=== PATIENT | male | born 1945 | race Caucasian/White ===

== ENCOUNTER 2016-09-04 15:29 | Inpatient (IN) ==
--- NOTE | 2016-09-04 16:33 | Emergency Department Note ---
Disposition Clinical Impression: Gait instability, Light headedness, Elevated troponin, Elevated INR, History of atrial fibrillation, History of CVA (cerebrovascular accident), Ischemic cardiomyopathy Disposition: Admitted As Inpatient Condition: Good Time of Disposition: 19:01 General Adult HPI - General Chief complaint: ED Weakness Stated complaint: weakness Source: EMS Mode of arrival: EMS Limitations: no limitations Nursing Notes Reviewed: Yes Vital Signs Reviewed: Yes - History of Present Illness HPI Narrative: Five-minute episode of difficulty ambulating. And lightheadedness. Denies shortness of breath or chest pain. Symptoms began after he finished a pulmonary function test. The symptoms subsided after he sat down. Pain Scale: 0 - Related Data Allergies Allergy/AdvReac Type Severity Reaction Status Date / Time No Known Allergies Allergy Verified 09/04/16 15:35 Review of Systems: Patient denies any fevers or chills. He reports lightheadedness that lasted 5 minutes prior to arrival. Denies any headaches. Denies any visual changes. Denies any shortness of breath or chest pain. Denies any nausea vomiting or diarrhea. Denies any abdominal pain. He denies any urinary symptoms. She denies any trouble urinating or hematuria. He denies any episodes of hematochezia or melena. All systems ED: reviewed and negative except as stated. Past Medical History - Past Medical History Attestation: Yes The following information was validated with the patient. Medical history: Reports: atrial fibrillation, CHF, coronary artery disease, CVA , hyperlipidemia, hypertension, myocardial infarction, valvular heart disease - Social History Smoking Status: Former smoker Smokeless Tobacco Status: No Alcohol use: Reports: none Drug use: Reports: none Physical Exam - General Limitations: no limitations General appearance: alert, in no apparent distress - Head Head exam: atraumatic, normocephalic, normal inspection - Eye Eye exam: Present: normal appearance, PERRL, EOMI - ENT ENT exam: normal exam, normal oropharynx, mucous membranes moist - Neck Neck exam: Present: normal inspection, full ROM, trachea midline - Chest Chest inspection: Present: normal inspection, symmetric chest wall rise - Respiratory Respiratory exam: Present: normal lung sounds bilaterally - Cardiovascular Cardiovascular exam: Present: regular rate, normal rhythm, normal heart sounds - Abdominal Exam Abdominal exam: Present: soft, Non-Tender, normal bowel sounds. Absent: tenderness, distention, guarding, rebound, rigidity, organomegaly - Rectal Exam Hand Washer present during exam: Yes Rectal exam: Present: normal inspection, normal rectal tone, heme (+) stool. Absent: black stool, bloody stool, fecal impaction, hemorrhoids, mass, tenderness - Extremities Exam Extremities exam: Present: normal inspection, full ROM, normal capillary refill. Absent: tenderness, pedal edema - Back Exam Back exam: Present: normal inspection, full ROM. Absent: tenderness, CVA tenderness (R), CVA tenderness (L) - Neurological Exam Neurological exam: Present: alert, oriented X3 - Psychiatric Psychiatric exam: Present: normal affect, normal mood - Skin Skin exam: Present: warm, dry, intact, normal color. Absent: rash, cyanosis Course Course Narrative: Well-appearing male patient presenting to the emergency department by EMS. He had a PFT test done earlier today at the [facility]. He states after he left he felt very weak and lightheaded. He denies any episodes of vertigo. He denies any chest pain or shortness of breath associated with this. He states he had to hold the wall to walk. This was concerning to him because his previous strokes he has had he has also had trouble ambulating. He denies any other symptoms such as numbness tingling or weakness in any specific extremity. He denies any headaches or visual disturbances. He states that this started around 235 this afternoon and resolved within 5 minutes after he sat down. He has no complaints at this time and states that he is feeling normal. He has a friend at bedside and she states that he is acting appropriate for himself. He is making jokes on exam. He is neurologically intact. I do not appreciate any neurologic deficits. CT scan of patient's head shows several episodes of old infarcts and possible subacute infarcts. Radiology is recommending further evaluation with an MRI. I feel this is reasonable. He was monitored in the emergency department with no evolving symptoms. We will admit patient to the hospital for further evaluation of his transient neurologic symptoms earlier today. After he got here I observed his gait and this was normal. He is agreeable to admission. Of note his INR and PTT were elevated. The friend states that they have been having trouble with his INR but it is been running low. He reports no episodes of GI bleeding however we checked a rectal exam. There is no gross blood on exam. His troponin was slightly increased so we have given him an aspirin while he is here. - Reevaluation(s) Reevaluation #1: Patient reassessed. He is still neurologically intact. I do not appreciate any neuro deficits. We will admit him to the hospital for further neurologic workup. He is agreeable to this. Time: 18:16 - Consultations Consultation #1: Dr. Minaya accepted patient's stable condition. Time: 18:24 Vital Signs Temperature 97.6 F 09/04/16 15:36 Pulse Rate 75 09/04/16 15:36 Respiratory Rate 18 09/04/16 15:36 Blood Pressure 143/96 09/04/16 15:36 O2 Sat by Pulse Oximetry 96 09/04/16 15:36 Temperature 97.4 F L 09/04/16 20:13 Pulse Rate 59 09/04/16 20:13 Respiratory Rate 16 09/04/16 20:13 Blood Pressure 156/66 09/04/16 20:13 O2 Sat by Pulse Oximetry 91 09/04/16 20:13 Oxygen Delivery Oxygen Delivery Room Air Medical Decision Making - Medical Records Medical records reviewed: Yes I reviewed the patient's medical records. - Lab Data Lab results reviewed: Yes I reviewed the patient's lab results. Result diagrams: 09/04/16 17:11 09/04/16 17:11 Lab Results 09/04/16 09/04/16 09/04/16 Range/Units 17:11 17:11 17:11 WBC 8.0 (4.3-11.1) K/mcL RBC 4.74 (4.19-5.50) M/mcL Hgb 15.0 (12.9-16.9) g/dL Hct 45.2 (37.5-50.1) % MCV 95.4 (83.0-100.0) fL MCH 31.6 (28.0-33.3) pg MCHC 33.2 (31.6-35.5) g/dL RDW 14.1 (11.5-14.5) % Plt Count 164 (140-400) K/mcL MPV 10.8 (9.4-12.4) fL Immature Gran % 0.7 (0-4) % Seg Neutrophils % 62.0 % Lymphocytes % 20.0 % Monocytes % 9.0 % Eosinophils % 7.2 % Basophils % 1.1 % Neutrophils # 5.0 (1.6-8.9) K/mcL Lymphocytes # 1.6 (0.6-4.6) K/mcL Monocytes # 0.7 (0.0-1.3) K/mcL Eosinophils # 0.6 (0.0-0.6) K/mcL Basophils # 0.1 (0.0-0.2) K/mcL PT (9.4-12.1) Seconds INR Sodium 138 (136-145) mEq/L Potassium 4.3 (3.5-4.5) mEq/L Chloride 107 (98-109) mEq/L Carbon Dioxide 24 (19-29) mEq/L BUN 22 (8-26) mg/dL Creatinine 1.12 (0.72-1.25) mg/dL Est GFR ( Amer) > 60 (> 60) Est GFR (Non-Af Amer) > 60 (> 60) BUN/Creatinine Ratio 20 (6-26) Glucose 94 (70-99) mg/dL Calculated Osmolality 289 (280-300) Calcium 9.2 (8.6-10.8) mg/dL Troponin I 0.04 H* (0-0.03) ng/mL Stool Occult Blood (Negative) 09/04/16 09/04/16 Range/Units 17:11 18:50 WBC (4.3-11.1) K/mcL RBC (4.19-5.50) M/mcL Hgb (12.9-16.9) g/dL Hct (37.5-50.1) % MCV (83.0-100.0) fL MCH (28.0-33.3) pg MCHC (31.6-35.5) g/dL RDW (11.5-14.5) % Plt Count (140-400) K/mcL MPV (9.4-12.4) fL Immature Gran % (0-4) % Seg Neutrophils % % Lymphocytes % % Monocytes % % Eosinophils % % Basophils % % Neutrophils # (1.6-8.9) K/mcL Lymphocytes # (0.6-4.6) K/mcL Monocytes # (0.0-1.3) K/mcL Eosinophils # (0.0-0.6) K/mcL Basophils # (0.0-0.2) K/mcL PT 50.8 H* (9.4-12.1) Seconds INR 4.5 H* Sodium (136-145) mEq/L Potassium (3.5-4.5) mEq/L Chloride (98-109) mEq/L Carbon Dioxide (19-29) mEq/L BUN (8-26) mg/dL Creatinine (0.72-1.25) mg/dL Est GFR ( Amer) (> 60) Est GFR (Non-Af Amer) (> 60) BUN/Creatinine Ratio (6-26) Glucose (70-99) mg/dL Calculated Osmolality (280-300) Calcium (8.6-10.8) mg/dL Troponin I (0-0.03) ng/mL Stool Occult Blood Negative (Negative) - Radiology Data Radiology results reviewed: Yes I reviewed the patient's radiology results. Chest X-Ray 09/04/16 15:57 IMPRESSION: No acute process. Mild cardiomegaly. D/ / Russ Lilly MD / Russ Lilly MD Interpreting Provider: Russ Lilly MD Head CT 09/04/16 16:22 IMPRESSION: Multifocal areas of selby-white matter junction loss seen within the bifrontal lobes, as well as the right frontoparietal region, right temporal lobe, as well as in the right occipital lobe. Some of these areas are associated with encephalomalacia and volume loss, though to a lesser degree in the right temporal lobe and right occipital lobe. There is also multifocal underlying deep white matter low attenuation suggestive of chronic microvascular ischemic change. Though much of this may be related to chronic ischemic and remote infarcts with encephalomalacia, an area of acute or possibly subacute ischemia is in the differential and is difficult to exclude in the setting of more extensive disease. If clinically concerned, further evaluation with MR may be beneficial. No intracranial hemorrhage is seen. This was discussed with Dr. Tobias in the emergency department 4:59 p.m. on 09/04/2016. D/ / Chai Bob MD / Chai Bob MD Interpreting Provider: Chai Bob MD - EKG Data EKG #1 EKG attestation: Yes I reviewed and interpreted this EKG. EKG results narrative: EKG showed a paced rhythm at [address] or T-wave changes are appreciated. Attestation Statement - Attestation Attestation: I personally interviewed and examined this patient and my medical decision- making was reviewed with the ED Resident Physician, Dr. Jc I agree with the documented findings, disposition and treatment plan as described except to the extent set forth below. Patient is a 71-year-old white male brought to the emergency department by EMS from the [facility] following urinary function testing that was scheduled for him routinely this morning. Patient and friend are at bedside and states that after his testing he was riding on a cart to go back to his parking area. Patient states that while riding on the cart he just "did not feel good" and commented to his friend that he felt like he did when he was having his stroke. When asking the patient to elaborate on this and give us more detail as to what he was feeling at that time he states that he does not know. All he can tell us is that he was feeling overwhelming generalized weakness and difficulty with standing and ambulating. [facility] that he was holding onto a wall to assist with ambulation because he felt off balance although patient here denies any dizziness or room spinning sensation. Patient denies any headaches or visual changes, a friend with him denies that he was having any slurred speech no facial droop, no chest pain pressure or heaviness, no shortness of breath, no diaphoresis, no abdominal pain or back pain, no flank discomfort and no vomiting bowel changes or urinary symptoms. Patient states he went to get off the cart transfer to a wheelchair and had trouble with standing due to his generalized weakness stating that his legs just felt like they might give out from under him. He actually required assistance for transfer from the cart to his wheelchair. Patient states on arrival to the ED here that his symptoms have resolved, he has no physical complaints at this time stating that he is feeling much better and actually ambulated for us in the ED without difficulty independently on arrival. Patient with clear speech, no focal neurologic deficits and stable vital signs. I agree with patient's physical exam findings as documented. For me patient had an NIH score of 0 on arrival. Patient's EKG shows a paced rhythm. Patient remained hemodynamically stable and within unchanged neurologic exam serially over time without his ED course. I was called by the radiologist due to the patient's head CT findings. He states that there is just a significant amount of encephalomalacia and a loss of the selby-white interface presumably from chronic changes but states this is very difficult to assess for any acute infarct. He does not see any hemorrhage or infarct but recommends MRI for further evaluation. Chest x-ray is unremarkable. Labs did show that he has an elevated INR, apparently discussing with him the recently made changes in his Coumadin because his levels were "too low". He also has a positive troponin with normal renal function. Patient denied any chest pain or pressure throughout his [facility] with his weakness and no chest pain on arrival here to the ED. Patient does have a pretty extensive cardiac history including ischemic cardiomyopathy, atrial fibrillation and prior heart cath. Patient is resting comfortably and asymptomatic at bedside. Patient was given aspirin on arrival prior to results of INR due to his elevated troponin. We did go in and perform a rectal exam and this was negative for blood. We will admit patient for concern for possible TIA with transient neurologic symptoms that resolved prior to arrival. Patient has 2 prior CVAs in the past, the most recent being about 10 years ago. He also has an elevated troponin which requires further evaluation with a paced rhythm on EKG. Due to his elevated INR we did not initiate heparin in the ED. Discussed the case with the hospitalist to accept the patient for admission.
[2016-09-04 17:50] LABS: Basophils # 0.1 K/mcL (0.0-0.2); Basophils % 1.1 %; Eosinophils # 0.6 K/mcL (0.0-0.6); Eosinophils % 7.2 %; Hematocrit 45.2 % (37.5-50.1); Immature Granulocytes % 0.7 % (0-4); Lymphocytes # 1.6 K/mcL (0.6-4.6); Mean Corpuscular HGB Conc 33.2 g/dL (31.6-35.5); Mean Corpuscular Hemoglobin 31.6 pg (28.0-33.3); Mean Corpuscular Volume 95.4 fL (83.0-100.0); Mean Platelet Volume 10.8 fL (9.4-12.4); Monocytes # 0.7 K/mcL (0.0-1.3); Platelet Count 164 K/mcL (140-400); Red Blood Count 4.74 M/mcL (4.19-5.50); Red Cell Distribution Width 14.1 % (11.5-14.5)
[2016-09-04 18:02] LABS: BUN/Creatinine Ratio 20 (6-26); Blood Urea Nitrogen 22 mg/dL (8-26); Calcium 9.2 mg/dL (8.6-10.8); Carbon Dioxide 24 mEq/L (19-29); Chloride 107 mEq/L (98-109); Glucose 94 mg/dL (70-99); Osmolality,Calculated 289 (280-300); Potassium 4.3 mEq/L (3.5-4.5); Sodium 138 mEq/L (136-145); eGFR For African Americans > 60 (> 60); eGFR For Non-African Americans > 60 (> 60)
[2016-09-04] MEDS ORDERED: Aspirin 81 MG TAB.CHEW PO ONE (18:23)
[2016-09-04 18:37] LABS: INR 4.5; Prothrombin Time 50.8 Seconds (9.4-12.1)
[2016-09-04] MEDS ORDERED: Ondansetron 4 MG/2 ML VIAL IVP PRN (20:54)
[2016-09-04] MEDS ORDERED: Naloxone 0.4 MG/ML INJ IVP PRN (20:54)
[2016-09-04] MEDS ORDERED: Nitroglycerin 0.4 MG TAB.SUBL SL PRN (20:56)
--- NOTE | 2016-09-04 21:05 | Internal Med History&Physical ---
Date of Encounter: 09/04/16 Time of Encounter: 20:59 Assessment and Plan (1) TIA (transient ischemic attack) Current visit: Yes Status: Acute Reports of gait instability that lasted 5 minutes with complete resolution of symptoms spontaneously CT head noted which is consistent with chronic changes will obtain MRI head 2D echo, carotid doppler neurology consult Aspirin, Statin hold coumadin given supratherapeutic INR patient ambulating well around the room and cleared bedside speech evaluation tele monitoring Qualifiers: Transient cerebral ischemia type: unspecified Qualified Code(s): G45.9 - Transient cerebral ischemic attack, unspecified (2) Supratherapeutic INR Current visit: Yes Status: Acute Will hold Coumadin at this time no need for Vit K or FFP supplementation at this time as patient is clinically asymptomatic without any acute bleed closely monitor INR, if remains persistently elevated or if an acute bleed occurs, consider reversal therapy (3) Atrial fibrillation Current visit: Yes Status: Chronic Rate controlled with BB anticoagulated with Coumadin Qualifiers: Atrial fibrillation type: chronic Qualified Code(s): I48.2 - Chronic atrial fibrillation (4) CHF (congestive heart failure) Current visit: Yes Status: Acute No signs of acute exacerbation continue home medications O2 supplementation as needed Patient may have undiagnosed COPD continue home nebulizer treatment Qualifiers: Congestive heart failure type: unspecified congestive heart failure type Congestive heart failure chronicity: chronic Qualified Code(s): I50.9 - Heart failure, unspecified (5) CAD (coronary artery disease) Current visit: Yes Status: Chronic No acute signs of angina present at this time continue home medications Qualifiers: Coronary Disease-Associated Artery/Lesion type: unspecified vessel or lesion type [place] vs. transplanted heart: unspecified whether [place] or transplanted heart Associated angina: with unspecified angina Qualified Code (s): I25.119 - Atherosclerotic heart disease of [place] coronary artery with unspecified angina pectoris (6) HTN (hypertension) Current visit: Yes Status: Chronic Will resume home medications and closely monitor BP Hydralazine 10mg IVP q6h SBP>150 Qualifiers: Hypertension type: essential hypertension Qualified Code(s): I10 - Essential (primary) hypertension (7) DVT prophylaxis Current visit: Yes Status: Acute anticoagulated with Coumadin (8) History of CVA (cerebrovascular accident) Current visit: Yes Status: Chronic no residual deficits present Internal Medicine - H&P: HPI Chief complaint: transfer from [facility] for concern for TIA Admitted From: Intrahospital Transfer Plans for Post Hospital Care: Home History of present illness: Mr. Harris is a 71 year old male with PMH of atrial fibrillation on coumadin, CHF s/p AICD, CAD, CVA, HTN, HLD who is admitted for concerning symptoms for TIA. 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 This episode last five minutes with complete resolution of symptoms spontaneously. He was further transferred to the [facility] ER for further evaluation. Upon arrival to the ER, patient was asymptomatic and at baseline. NIHSS was 0. Patient has been able to walk without any discomfort, however given his history of CVA, he was concerned which prompted his admission. He was also noted to have supratherapeutic INR but denies any acute bleeds. At this time he is resting comfortably in bed and denies any discomfort. Denies headache, weakness, dizziness, chest pain, sob, abd pain, n/v, fever, or chills. Reports of having smoking history and quit 30years ago. Past Med Surg Social Fam HX - Past Medical History Medical history: atrial fibrillation, CHF, coronary artery disease, CVA, hyperlipidemia, hypertension, myocardial infarction, valvular heart disease - Social History Smoking Status: Former smoker Smokeless Tobacco Status: No Alcohol use: none Drug use: none Internal Medicine - H&P: Meds Albuterol Sulfate [Albuterol Inhaler] 2 puff IH Q6HR PRN 09/04/16 [History] Allopurinol [Zyloprim] 300 mg PO DAILY 09/04/16 [History] Aspirin [Lo-Dose Aspirin EC] 81 mg PO DAILY 09/04/16 [History] Budesonide/Formoterol 160/4.5 [Symbicort 160/4.5] 1 puff IH Q12H 09/04/16 [ History] Carboxymethylcellulose Sodium [Refresh Tears] 1 drop OP QID 09/04/16 [History] Carvedilol 12.5 mg PO BID 09/04/16 [History] Furosemide [Lasix] 20 mg PO DAILY 09/04/16 [History] Isosorbide MONOnitrate (24 HR) [Imdur] 30 mg PO DAILY 09/04/16 [History] Lisinopril [Zestril] 5 mg PO DAILY 09/04/16 [History] Mineral Oil/Petrolatum,White [Refresh P.m. Ointment] 1 appl OP QID 09/04/16 [ History] Nitroglycerin [Nitrostat] 0.4 mg SL Q5M PRN 09/04/16 [History] Simvastatin [Zocor] 10 mg PO QPM 09/04/16 [History] Spironolactone [Aldactone] 25 mg PO DAILY 09/04/16 [History] Tiotropium [Spiriva] 18 mcg IH DAILY 09/04/16 [History] Warfarin [Coumadin] 2.5 mg PO SUMOTUTHFRSA 09/04/16 [History] Warfarin [Coumadin] 5 mg PO WE 09/04/16 [History] Allergies No Known Allergies Allergy (Verified 09/04/16 15:35) All Systems PM: A 10-system review of systems was performed and is negative for pertinent findings except as documented above in the HPI. - Constitutional Constitutional: as per HPI - Constitutional Vitals: Temp Pulse Resp BP Pulse Ox 97.4 F L 59 16 156/66 91 09/04/16 20:13 09/04/16 20:13 09/04/16 20:13 09/04/16 20:13 09/04/16 20:13 General appearance: Present: cooperative, A&O X 3, no acute distress, answers questions appropriately - Head Head exam: Present: atraumatic, normocephalic - Eye Eye exam: Present: conjuntiva pink, sclera anicteric - Respiratory Respiratory exam: Present: CTAB. Absent: accessory muscle use, rales, rhonchi, wheezes - Cardiovascular Cardiovascular exam: Present: RRR, +S1, +S2. Absent: diastolic murmur, gallop, rubs, systolic murmur Additional comments: AICD intact - GI/Abdominal GI/Abdominal exam: Present: normal bowel sounds, soft, no peritoneal signs. Absent: distended, tenderness - Extremities Exam Extremities exam: Present: warm, radial pulses palpable and symetrical. Absent : calf tenderness, cyanotic, pedal edema - Neurological Exam Neurological exam: Present: alert, oriented X3, no focal deficits, strengths equal and symetr throughout. Absent: pronater drift, facial droop, speech deficit - Psychiatric Psychiatric exam: Present: normal affect (a), normal mood Internal Med - H&P Results - Labs CBC & Chem 7: 09/04/16 17:11 09/04/16 17:11
[2016-09-04] MEDS: MINERAL OIL OP SCH (22:03)
[2016-09-04] MEDS: PETROLATUM WHITE OP SCH (22:03)
[2016-09-04] MEDS: (Carboxymethylcellulose Sodium [Refresh Tears] 1 DROP) OP SCH (22:03)
[2016-09-05] MEDS: Budesonide/Formoterol 160/4.5 MDI IH SCH ×3 (00:20→19:45)
[2016-09-05 03:12] LABS: Basophils # 0.1 K/mcL (0.0-0.2); Basophils % 1.4 %; Eosinophils # 0.6 K/mcL (0.0-0.6); Eosinophils % 8.4 %; Hematocrit 43.6 % (37.5-50.1); Hemoglobin 14.2 g/dL (12.9-16.9); Immature Granulocytes % 0.4 % (0-4); Lymphocytes # 1.6 K/mcL (0.6-4.6); Mean Corpuscular HGB Conc 32.6 g/dL (31.6-35.5); Mean Corpuscular Volume 95.2 fL (83.0-100.0); Mean Platelet Volume 9.9 fL (9.4-12.4); Monocytes # 0.7 K/mcL (0.0-1.3); Monocytes % 10.4 %; Platelet Count 153 K/mcL (140-400); Red Blood Count 4.58 M/mcL (4.19-5.50); Segmented Neutrophils % 56.4 %
[2016-09-05 03:31] LABS: BUN/Creatinine Ratio 21 (6-26); Blood Urea Nitrogen 24 mg/dL (8-26); Calcium 8.9 mg/dL (8.6-10.8); Carbon Dioxide 25 mEq/L (19-29); Chloride 109 mEq/L (98-109); Chol/HDL Ratio 3.8 (0-4.9); Cholesterol 114 mg/dL (< 200); Glucose 134 mg/dL (70-99); HDL Cholesterol 30 mg/dL (40-59); LDL Cholesterol,Calculated 48 mg/dL (0-99); Magnesium 2.1 mg/dL (1.6-2.6); Osmolality,Calculated 294 (280-300); Phosphorous 3.4 mg/dL (2.3-4.7); Potassium 4.2 mEq/L (3.5-4.5); Sodium 139 mEq/L (136-145); Triglycerides 178 mg/dL (< 150); eGFR For African Americans > 60 (> 60); eGFR For Non-African Americans > 60 (> 60)
[2016-09-05] MEDS: Isosorbide MONOnitrate (24 HR) 30 MG TAB.ER.24H PO SCH (08:10)
[2016-09-05] MEDS: Aspirin Enteric Coated 81 MG Tablet PO SCH (08:10)
[2016-09-05] MEDS: Furosemide 20 MG TABLET PO SCH (08:11)
[2016-09-05] MEDS: PETROLATUM WHITE OP SCH ×4 (08:11→21:00)
[2016-09-05] MEDS: (Carboxymethylcellulose Sodium [Refresh Tears] 1 DROP) OP SCH ×4 (08:11→21:00)
[2016-09-05] MEDS: MINERAL OIL OP SCH ×4 (08:11→21:00)
[2016-09-05] MEDS: Spironolactone 25 MG TABLET PO SCH (08:11)
[2016-09-05] MEDS: Tiotropium 18 MCG inhalation IH SCH (08:21)
--- NOTE | 2016-09-05 11:22 | Electrocardiograph Report ---
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
--- NOTE | 2016-09-05 11:27 | Neurology - Consult Note ---
Date of Encounter: 09/05/16 Time of Encounter: 08:20 Assessment and Plan (1) History of CVA (cerebrovascular accident) Current Visit: Yes Status: Chronic Patient presents with transient weakness concerning for possible CVA of stroke versus TIA given the patient's prior history of TIAs. Patient states his weakness was generalized and could not tease out any focal deficits. Patient has had no recurrence of symptoms since onset that lasted 5 minutes 1 day ago. No focal neurological deficits or weakness on exam. Patient did have a leftward beating nystagmus on examination of left upper gaze as well as a rightward beating nystagmus on examination of rightward gaze on extraocular motion exam. Patient's strength equal bilaterally and patient able to stand without issue of difficulty and walk with a normal gait. Plan: Head CT showed no hemorrhage, plan for MRI brain. Patient also receiving a workup with carotid Doppler, echocardiogram. Recommendations to follow once imagings complete (2) Gait instability Current Visit: Yes Status: Acute Patient had sudden onset of gait instability times one day ago that lasted 5 minutes. Patient's current symptoms have resolved and has no observable weaknesses on exam today. Patient able to stand without lightheadedness dizziness or any weakness. Patient has normal gait and states that he feels very well today. History of Present Illness Chief complaint: generalized weakness HPI: Mr. Harris is a 71 year old male with past medical history of A. 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 Patient states he felt weak everywhere. Patient states he could not isolate a focal area of weakness. Patient denies lightheadedness, dizziness, changes in vision, changes in hearing , tinnitus, neck pain, confusion, difficulty speaking, chest pain, neck pain, shortness of breath, numbness or tingling in extremities, incontinence. Past Med Surg Social Fam HX - Past Medical History Attestation: Yes The following information was validated with the patient. Source: patient Medical history: atrial fibrillation, CHF, coronary artery disease, CVA, hyperlipidemia, hypertension, myocardial infarction, valvular heart disease - Social History Smoking Status: Former smoker Smokeless Tobacco Status: No Alcohol use: none Drug use: none Medications and Allergies Albuterol Sulfate [Albuterol Inhaler] 2 puff IH Q6HR PRN 09/04/16 [History] Allopurinol [Zyloprim] 300 mg PO DAILY 09/04/16 [History] Aspirin [Lo-Dose Aspirin EC] 81 mg PO DAILY 09/04/16 [History] Budesonide/Formoterol 160/4.5 [Symbicort 160/4.5] 1 puff IH Q12H 09/04/16 [ History] Carboxymethylcellulose Sodium [Refresh Tears] 1 drop OP QID 09/04/16 [History] Carvedilol 12.5 mg PO BID 09/04/16 [History] Furosemide [Lasix] 20 mg PO DAILY 09/04/16 [History] Isosorbide MONOnitrate (24 HR) [Imdur] 30 mg PO DAILY 09/04/16 [History] Lisinopril [Zestril] 5 mg PO DAILY 09/04/16 [History] Mineral Oil/Petrolatum,White [Refresh P.m. Ointment] 1 appl OP QID 09/04/16 [ History] Nitroglycerin [Nitrostat] 0.4 mg SL Q5M PRN 09/04/16 [History] Simvastatin [Zocor] 10 mg PO QPM 09/04/16 [History] Spironolactone [Aldactone] 25 mg PO DAILY 09/04/16 [History] Tiotropium [Spiriva] 18 mcg IH DAILY 09/04/16 [History] Warfarin [Coumadin] 2.5 mg PO SUMOTUTHFRSA 09/04/16 [History] Warfarin [Coumadin] 5 mg PO WE 09/04/16 [History] Allergies No Known Allergies Allergy (Verified 09/04/16 15:35) All Systems: A 10-system review of systems was performed and is negative for pertinent findings except as documented above in the HPI. - Constitutional Constitutional ROS IM: as per HPI Physical Examination - Vital Signs Vital Signs: Initial Vital Signs Temp Pulse Resp BP Pulse Ox 97.6 F 75 18 143/96 96 09/04/16 15:36 09/04/16 15:36 09/04/16 15:36 09/04/16 15:36 09/04/16 15:36 - Constitutional General appearance: comfortable - Neurologic Sensorimotor examination: intact Detailed motor examination: grossly full strength in all extremities, full strength in all major muscle groups Motor examination - right side: 5/5: deltoids, biceps, triceps, wrist flexion, wrist extension, forestry consultant, hip flexors, tibialis Anterior, quadriceps, toe extension (EHL), plantarflexion Motor examination - left side: 07/12: deltoids, biceps, triceps, wrist flexion, wrist extension, hip flexors, forestry consultant, quadriceps, tibialis Anterior, toe extension (EHL), plantarflexion Reflex and gait examination: normal gait Reflexes: Biceps: 2+, Triceps: 2+, Brachioradialis: 2+, Patella: 2+, Achilles: 2 + Mental Status Examination: awake, alert, oriented to person, oriented to place, oriented to time, follows commands appropriately, answers questions appropriately, no agnosia, no aphasia, no aproxia Cranial nerve examination: PERRL, EOMI, visual jones intact, corneal reflexes brisk symmetrically, sensory to face intact, mastication intact, no facial asymmetry is present, no dysarthria, hearing is intact symmetrically, soft palate elevates bilaterally upon phonation, gag reflex intact, flexes SCM and trapezius muscles symmetrically with full power, tongue protrudes midline, no atrophy or facial fasiculations present Cranial Nerve Exam: nystagmus: Right (Nystagmus in both directions) Results - Laboratory Findings CBC and BMP: 09/05/16 02:57 09/05/16 02:57 Abnormal lab findings: Abnormal lab results PT 50.8 Seconds (9.4-12.1) H* 09/04/16 17:11 INR 4.5 H* 09/04/16 17:11 Glucose 134 mg/dL (70-99) H 09/05/16 02:57 Troponin I 0.04 ng/mL (0-0.03) H* 09/04/16 17:11 Triglycerides 178 mg/dL (< 150) H 09/05/16 02:57 VLDL Cholesterol, Calc 36 mg/dL (< 31) H 09/05/16 02:57 HDL Cholesterol 30 mg/dL (40-59) L 09/05/16 02:57 Consult Discharge Plan - Plan [facility]errals: [facility] [Primary Care Provider] -
[2016-09-05 12:20] LABS: Bilirubin,Urine Negative (Negative); Blood,Urine Negative (Negative); Clarity,Urine Clear (Clear); Color,Urine Yellow (Yellow); Glucose,Urine (UA) Normal (Normal); Ketones,Urine Negative (Negative); Leukocyte Esterase,Urine Negative (Negative); Nitrite,Urine Negative (Negative); PH,Urine 5.5 pH Units (5.0-8.0); Protein,Urine Negative (Neg-Trace); Specific Gravity,Urine 1.024 (1.010-1.025); Urobilinogen,Urine Normal (Normal)
--- NOTE | 2016-09-05 17:09 | Discharge Summary ---
Date of Encounter: 09/06/16 Time of Encounter: 12:30 - Discharge Diagnosis (1) Gait instability Priority: Primary Status: Resolved (2) TIA (transient ischemic attack) Priority: Primary Status: Suspected Comments: no new focal neurological weaknesses. Qualifiers: Transient cerebral ischemia type: unspecified Qualified Code(s): G45.9 - Transient cerebral ischemic attack, unspecified (3) History of CVA (cerebrovascular accident) Priority: Secondary Status: Chronic Comments: no new focal neurological weaknesses. (4) Elevated troponin Priority: Primary Status: Acute Comments: remained adynamic and stable; resolved prior to discharge (5) Supratherapeutic INR Priority: Primary Status: Acute Comments: No signs of active bleeding. Patient has been on warfarin per approximately 20 years, we will have him follow up Friday (6) History of atrial fibrillation Priority: Secondary Status: Chronic Comments: rate controlled. telemetry reviewed with frequent PVC's but none sustained and patient asymptomatic while admitted. Followup outpatient. (7) CHF (congestive heart failure) Priority: Secondary Status: Chronic Comments: Echo revealing EF of 35-40%. Received records from the [facility], no changes to prior EF. He is also on diuretics, chronic combined heart failure without acute exacerbation. Patient denied chest pain or shortness of breath throughout this admission. Followup outpatient at the [facility]. Qualifiers: Congestive heart failure type: combined Congestive heart failure chronicity : chronic Qualified Code(s): I50.42 - Chronic combined systolic (congestive) and diastolic (congestive) heart failure (8) CAD (coronary artery disease) Priority: Secondary Status: Chronic Qualifiers: Coronary Disease-Associated Artery/Lesion type: unspecified vessel or lesion type [place] vs. transplanted heart: unspecified whether [place] or transplanted heart Associated angina: with unspecified angina Qualified Code (s): I25.119 - Atherosclerotic heart disease of [place] coronary artery with unspecified angina pectoris (9) HTN (hypertension) Priority: Secondary Status: Chronic Comments: Controlled, follow-up outpatient Qualifiers: Hypertension type: essential hypertension Qualified Code(s): I10 - Essential (primary) hypertension (10) DVT prophylaxis Priority: Primary Status: Acute Comments: Supratherapeutic INR - Discharge Medications Home Medications: Albuterol Sulfate [Albuterol Inhaler] 2 puff IH Q6HR PRN 09/04/16 [History] Allopurinol [Zyloprim] 300 mg PO DAILY 09/04/16 [History] Aspirin [Lo-Dose Aspirin EC] 81 mg PO DAILY 09/04/16 [History] Budesonide/Formoterol 160/4.5 [Symbicort 160/4.5] 1 puff IH Q12H 09/04/16 [ History] Carboxymethylcellulose Sodium [Refresh Tears] 1 drop OP QID 09/04/16 [History] Carvedilol 12.5 mg PO BID 09/04/16 [History] Furosemide [Lasix] 20 mg PO DAILY 09/04/16 [History] Isosorbide MONOnitrate (24 HR) [Imdur] 30 mg PO DAILY 09/04/16 [History] Lisinopril [Zestril] 5 mg PO DAILY 09/04/16 [History] Mineral Oil/Petrolatum,White [Refresh P.m. Ointment] 1 appl OP QID 09/04/16 [ History] Nitroglycerin [Nitrostat] 0.4 mg SL Q5M PRN 09/04/16 [History] Simvastatin [Zocor] 10 mg PO QPM 09/04/16 [History] Spironolactone [Aldactone] 25 mg PO DAILY 09/04/16 [History] Tiotropium [Spiriva] 18 mcg IH DAILY 09/04/16 [History] Warfarin [Coumadin] 2.5 mg PO SUMOTUTHFRSA 09/04/16 [History] Warfarin [Coumadin] 5 mg PO WE 09/04/16 [History] Allergies/Adverse Reactions: Allergies No Known Allergies Allergy (Verified 09/04/16 15:35) Procedures/tests Complete & Pending: Procedures Performed prior 72 hours Category Date Time Status ECG 12 lead ECG [ECG] Routine Y 09/05/16 11:51 Completed Date of admission: 09/05/16 07:03 [facility] Consults: 09/04/16 20:55 Consult to Neurology [CONS] Routine Consulting Provider: [facility] Reason for Consult: TIA Call Completed: No Discharging clinician: Sara Mane Anticipated date of discharge: 09/06/16 - Patient Status Disposition: Home, Self-Care Condition: Good Functional capacity at discharge: independent ambulation Overall status at discharge: patient is back to baseline - Discharge Instructions Follow Up With: [facility] [Primary Care Provider] - Additional Instructions: Follow-up with primary care provider and primary electrocardiogram technician within 1-2 weeks; followup with coumadin clinic at the [facility] FRIDAY to have INR rechecked. Resume coumadin Friday - Diet and Activity Activity: increase activity as tolerated Diet: low fat, low cholesterol, low salt diet Hospital course: Mr. Harris is a 71 year old male with past medical history of atrial fibrillation on Coumadin, CHF status post PPM/AICD, CAD, CVA, hypertension, hyperlipidemia, valvular heart disease. Patient presented to the emergency department chief complaint of acute onset of difficulty walking. 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 This episode lasted approximately 5 minutes and had complete resolution of symptoms spontaneously. Patient was still transferred to the emergency department for further evaluation and management. Patient remained asymptomatic and at his baseline upon presentation to the emergency department. Workup in the emergency department revealing borderline positive troponin of 0.04 and a supratherapeutic INR of 4.5. Patient was admitted to the hospitalist service for further evaluation and management. Chest x-ray negative for acute processes. Head CT revealing multiple focal encephalomalacia at the bilateral frontal, right frontal temporal, and parietal region which is likely old and chronic without midline shift, mass effect, or hemorrhage. Patient was unable to get an MRI secondary to his pacemaker. Patient remained asymptomatic during his admission. Carotid duplex revealing moderate stenosis bilaterally, follow-up outpatient. Regarding his echocardiogram, ejection fraction 35-40% which was improved from prior report from the [facility] that stated his EF was 30-35%. Patient was euvolemic on examination throughout this admission without acute heart failure exacerbation. He was seen and evaluated by neurology who recommended continued medical management. Prior to discharge, troponin was rechecked and was resolved. Low suspicion for ACS. Patient denied chest pain or shortness of breath throughout this admission. His INR was also rechecked and it was trending down. He states he has been on Coumadin for approximately 20 years and states that he has high INR levels frequently and states that the [facility] "never makes me stay in the hospital." He had no signs of active bleeding and there was no indication for any reversal agents. His Coumadin was held while he was admitted and he was discharged on a Friday and will follow-up with the [facility] on Friday. He has been instructed to take it easy over the weekend to avoid any injuries in the return to the emergency department if any issues come up. He was discharged home in stable condition with close outpatient follow-up recommended. ITS Impressions Chest X-Ray 09/04/16 15:57 IMPRESSION: No acute process. Mild cardiomegaly. D/ / Russ Lilly MD / Russ Lilly MD Interpreting Provider: Russ Lilly MD Head CT 09/04/16 16:22 IMPRESSION: Multifocal areas of selby-white matter junction loss seen within the bifrontal lobes, as well as the right frontoparietal region, right temporal lobe, as well as in the right occipital lobe. Some of these areas are associated with encephalomalacia and volume loss, though to a lesser degree in the right temporal lobe and right occipital lobe. There is also multifocal underlying deep white matter low attenuation suggestive of chronic microvascular ischemic change. Though much of this may be related to chronic ischemic and remote infarcts with encephalomalacia, an area of acute or possibly subacute ischemia is in the differential and is difficult to exclude in the setting of more extensive disease. If clinically concerned, further evaluation with MR may be beneficial. No intracranial hemorrhage is seen. This was discussed with Dr. Tobias in the emergency department 4:59 p.m. on 09/04/2016. D/ / Chai Bob MD / Chai Bob MD Interpreting Provider: Chai Bob MD Echocardiogram with saline contrast impressions: LVEF 35-40%. There is mild- moderate global LV systolic dysfunction with regional variations. LV is mildly thickened and dilated. RV is normal in size and function. Mechanical mitral valve prosthesis demonstrates normal motility and normal Doppler findings. No significant regurgitation. Moderate aortic regurgitation. Mild-moderate tricuspid regurgitation. Mild pulmonic regurgitation. Mild pulmonary hypertension. Cavitation bubbles are visualized in the LV secondary to mechanical mitral valve. This obscures interpretation of saline contrast study. No prior study for comparison. 09/05/16 10:38 - [facility]ascular Preliminary [facility]: [id number] : 1945 Patient Age: 71 Preliminary report for bilateral carotid duplex is 40-59% stenosis bilateral ICA. - Time Spent with Patient Total time spent providing and/or coordinating discharge services: - Constitutional Vitals: Temp Pulse Resp BP Pulse Ox 97.7 F 58 14 103/56 91 09/05/16 15:03 09/05/16 15:03 09/05/16 15:03 09/05/16 15:03 09/05/16 15:03 General appearance: Present: cooperative, A&O X 3, pleasant, no acute distress, answers questions appropriately - Head Head exam: Present: atraumatic, normocephalic - Eye Eye exam: Present: PERRL, conjuntiva pink, sclera anicteric Pupils: Present: PERRL - Neck Neck exam general surgery: Present: supple, trachea midline. Absent: lymphadenopathy - Respiratory Respiratory exam: Present: decreased breath sounds. Absent: accessory muscle use, rales, respiratory distress, rhonchi, wheezes - Cardiovascular Cardiovascular exam: Present: irregular rhythm, +S1, +S2. Absent: diastolic murmur, gallop, rubs, systolic murmur - GI/Abdominal GI/Abdominal exam: Present: normal bowel sounds, soft, no peritoneal signs. Absent: distended, tenderness - Extremities Exam Extremities exam: Present: warm, radial pulses palpable and symetrical. Absent : calf tenderness, cyanotic, pedal edema - Neurological Exam Neurological exam: Present: alert, CN II-XII intact, normal gait, oriented X3, no focal deficits, strengths equal and symetr throughout. Absent: pronater drift, facial droop, speech deficit - Skin Skin exam: Present: dry, intact, normal color, warm
[2016-09-05 17:44] LABS: INR 5.4; Prothrombin Time 61.6 Seconds (9.4-12.1)
--- NOTE | 2016-09-05 18:49 | Internal Med Progress Note ---
Date of Encounter: 09/05/16 Time of Encounter: 15:00 - Assessment and plan (1) Gait instability Current Visit: Yes Status: Resolved (2) TIA (transient ischemic attack) Current Visit: Yes Status: Suspected Assessment and plan: no new focal neurological weaknesses. Chest x-ray negative for acute processes. Head CT revealing multiple focal encephalomalacia at the bilateral frontal, right frontal temporal, and parietal region which is likely old and chronic without midline shift, mass effect, or hemorrhage. Patient was unable to get an MRI secondary to his pacemaker. Patient remaining asymptomatic thus far during his admission. Carotid duplex revealing moderate stenosis bilaterally, follow-up outpatient. Regarding his echocardiogram, ejection fraction 35-40%. No prior echocardiograms or tests were available as the patient has had everything performed at the [facility]- records have been requested. Patient stating he is aware that his normal ejection fraction is 39% which is consistent with this echocardiogram- will verify with records. Patient was euvolemic on examination throughout this admission without acute heart failure exacerbation. Will consider cardiology consult pending [facility] records. He was seen and evaluated by neurology who recommended continued medical management. Troponin was rechecked and is adynamic and stable. Low suspicion for ACS. Patient denied chest pain or shortness of breath throughout this admission. His INR was also rechecked but had increased; will keep overnight and trend. ITS Impressions Chest X-Ray 09/04/16 15:57 IMPRESSION: No acute process. Mild cardiomegaly. D/ / Russ Lilly MD / Russ Lilly MD Interpreting Provider: Russ Lilly MD Head CT 09/04/16 16:22 IMPRESSION: Multifocal areas of selby-white matter junction loss seen within the bifrontal lobes, as well as the right frontoparietal region, right temporal lobe, as well as in the right occipital lobe. Some of these areas are associated with encephalomalacia and volume loss, though to a lesser degree in the right temporal lobe and right occipital lobe. There is also multifocal underlying deep white matter low attenuation suggestive of chronic microvascular ischemic change. Though much of this may be related to chronic ischemic and remote infarcts with encephalomalacia, an area of acute or possibly subacute ischemia is in the differential and is difficult to exclude in the setting of more extensive disease. If clinically concerned, further evaluation with MR may be beneficial. No intracranial hemorrhage is seen. This was discussed with Dr. Tobias in the emergency department 4:59 p.m. on 09/04/2016. D/ / Chai Bob MD / Chai Bob MD Interpreting Provider: Chai Bob MD Echocardiogram with saline contrast impressions: LVEF 35-40%. There is mild- moderate global LV systolic dysfunction with regional variations. LV is mildly thickened and dilated. RV is normal in size and function. Mechanical mitral valve prosthesis demonstrates normal motility and normal Doppler findings. No significant regurgitation. Moderate aortic regurgitation. Mild-moderate tricuspid regurgitation. Mild pulmonic regurgitation. Mild pulmonary hypertension. Cavitation bubbles are visualized in the LV secondary to mechanical mitral valve. This obscures interpretation of saline contrast study. No prior study for comparison. 09/05/16 10:38 - Vascular Preliminary by Zoran De Oliveira [facility] Num: [id number] : 1945 Patient Age: 71 Preliminary report for bilateral carotid duplex is 40-59% stenosis bilateral ICA. Qualifiers: Transient cerebral ischemia type: unspecified Qualified Code(s): G45.9 - Transient cerebral ischemic attack, unspecified (3) History of CVA (cerebrovascular accident) Current Visit: Yes Status: Chronic (4) Elevated troponin Current Visit: Yes Status: Acute (5) Supratherapeutic INR Current Visit: Yes Status: Acute (6) History of atrial fibrillation Current Visit: Yes Status: Chronic Assessment and plan: Rate controlled however frequent PVCs present on telemetry, [facility] and consider possible cardiology consult (7) CHF (congestive heart failure) Current Visit: Yes Status: Chronic Assessment and plan: Suspect combined chronic diastolic and systolic heart failure without acute exacerbation, awaiting [facility]. (8) CAD (coronary artery disease) Current Visit: Yes Status: Chronic Qualifiers: Coronary Disease-Associated Artery/Lesion type: unspecified vessel or lesion type [place] vs. transplanted heart: unspecified whether [place] or transplanted heart Associated angina: with unspecified angina Qualified Code (s): I25.119 - Atherosclerotic heart disease of [place] coronary artery with unspecified angina pectoris (9) HTN (hypertension) Current Visit: Yes Status: Chronic Assessment and plan: Controlled, we will continue to trend and adjust medications as indicated. Qualifiers: Hypertension type: essential hypertension Qualified Code(s): I10 - Essential (primary) hypertension (10) DVT prophylaxis Current Visit: Yes Status: Acute Assessment and plan: Supratherapeutic INR - Subjective Interval history: Patient seen and examined. On examination, patient resting in his bed. Patient alert and oriented 3 and currently denies pain, shortness of breath, or difficulty walking. He is endorsing a normal appetite. - Constitutional Vitals: Temp Pulse Resp BP Pulse Ox 97.7 F 58 14 103/56 91 09/05/16 15:03 09/05/16 15:03 09/05/16 15:03 09/05/16 15:03 09/05/16 15:03 General appearance: Present: cooperative, A&O X 3, pleasant, no acute distress, answers questions appropriately - Head Head exam: Present: atraumatic, normocephalic - Eye Eye exam: Present: PERRL, conjuntiva pink, sclera anicteric Pupils: Present: PERRL - Neck Neck exam general surgery: Present: supple, trachea midline. Absent: lymphadenopathy - Respiratory Respiratory exam: Present: CTAB. Absent: accessory muscle use, rales, respiratory distress, rhonchi, wheezes - Cardiovascular Cardiovascular exam: Present: RRR, +S1, +S2. Absent: diastolic murmur, gallop, rubs, systolic murmur - GI/Abdominal GI/Abdominal exam: Present: normal bowel sounds, soft, no peritoneal signs. Absent: distended, tenderness - Extremities Exam Extremities exam: Present: warm, radial pulses palpable and symetrical. Absent : calf tenderness, cyanotic, pedal edema - Neurological Exam Neurological exam: Present: alert, CN II-XII intact, normal gait, oriented X3, no focal deficits, strengths equal and symetr throughout. Absent: pronater drift, facial droop, speech deficit - Skin Skin exam: Present: dry, intact, pallor, warm Internal Medicine: Result - Labs CBC & Chem 7: 09/05/16 02:57 09/05/16 02:57 Labs: Cardiac Enzymes 09/05/16 Range/Units 17:01 Troponin I 0.04 H* (0-0.03) ng/mL Urine 09/05/16 Range/Units 10:43 Urine Color Yellow (Yellow) Urine Clarity Clear (Clear) Urine pH 5.5 (5.0-8.0) pH Units Ur Specific [place] 1.024 (1.010-1.025) Urine Protein Negative (Neg-Trace) mg/dL Urine Glucose (UA) Normal (Normal) mg/dL - ABG Interpretation ABG results: PT/INR, D-dimer PT 61.6 Seconds (9.4-12.1) H* 09/05/16 17:26 Consult Discharge Plan - Plan Additional Instructions: 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
[2016-09-06 04:45] LABS: INR 4.9; Prothrombin Time 55.9 Seconds (9.4-12.1)
[2016-09-06 04:53] LABS: BUN/Creatinine Ratio 31 (6-26); Blood Urea Nitrogen 28 mg/dL (8-26); Calcium 8.9 mg/dL (8.6-10.8); Carbon Dioxide 23 mEq/L (19-29); Chloride 110 mEq/L (98-109); Glucose 114 mg/dL (70-99); Osmolality,Calculated 296 (280-300); Potassium 4.3 mEq/L (3.5-4.5); Sodium 140 mEq/L (136-145); eGFR For African Americans > 60 (> 60); eGFR For Non-African Americans > 60 (> 60)
[2016-09-06] MEDS: Aspirin Enteric Coated 81 MG Tablet PO SCH (08:38)
[2016-09-06] MEDS: PETROLATUM WHITE OP SCH (08:39)
[2016-09-06] MEDS: Spironolactone 25 MG TABLET PO SCH (08:39)
[2016-09-06] MEDS: MINERAL OIL OP SCH (08:39)
[2016-09-06] MEDS: Isosorbide MONOnitrate (24 HR) 30 MG TAB.ER.24H PO SCH (08:39)
[2016-09-06] MEDS: Furosemide 20 MG TABLET PO SCH (08:39)
[2016-09-06] MEDS: (Carboxymethylcellulose Sodium [Refresh Tears] 1 DROP) OP SCH (08:39)
[2016-09-06 10:37] VITALS: BP 156/80
[2016-09-06] MEDS: Budesonide/Formoterol 160/4.5 MDI IH SCH (11:53)
[2016-09-06] MEDS: Tiotropium 18 MCG inhalation IH SCH (11:53)
--- NOTE | 2016-09-06 12:59 | Electrocardiograph Report ---
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
[2016-09-06] MEDS ORDERED: Lacri-Lube 3.5 GM TUBE OP SCH (17:00)
[2016-09-06] MEDS ORDERED: Artificial Tears SOLN 15 ML BOTTLE OP SCH (17:00)
--- NOTE | 2016-09-06 17:15 | Carotid Imaging Report ---
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 Recommendations: Risk Factor Modification, Medical Therapy, and Follow up exam 12 months. Test completed on 09/05/2016 at 9:45:00 am. Findings Carotid Duplex: Right: There is nonstenotic plaque in the right proximal common carotid artery with a PSV of 62 cm/s and a EDV of 9 cm/s. There is smooth heterogeneous plaque. There is nonstenotic plaque in the right mid common carotid artery with a PSV of 62 cm/s and a EDV of 9 cm/s. There is smooth heterogeneous plaque. There is nonstenotic plaque in the right distal common carotid artery with a PSV of 81 cm/s and a EDV of 10 cm/s. There is smooth heterogeneous plaque. There is nonstenotic plaque in the right bifurcation with a PSV of 81 cm/s and a EDV of 12 cm/s. There is smooth heterogeneous plaque. There is 40-59% stenosis in the right proximal internal carotid artery with a PSV of 121 cm/s and a EDV of 18 cm/s. There is smooth heterogeneous plaque. The right mid internal carotid artery has a PSV of 71 cm/s and a EDV of 16 cm/s. The right distal internal carotid artery has a PSV of 46 cm/s and a EDV of 14 cm/s. There is nonstenotic plaque in the right eca with a PSV of 259 cm/s and a EDV of 8 cm/s. There is smooth heterogeneous plaque. The right vertebral artery has a PSV of 44 cm/s and a EDV of 11 cm/s. The right distal internal carotid artery was not well visualized. Left: There is nonstenotic plaque in the left proximal common carotid artery with a PSV of 142 cm/s and a EDV of 15 cm/s. There is smooth heterogeneous plaque. There is nonstenotic plaque in the left mid common carotid artery with a PSV of 102 cm/s and a EDV of 11 cm/s. There is smooth heterogeneous plaque. There is nonstenotic plaque in the left distal common carotid artery with a PSV of 75 cm/s and a EDV of 9 cm/s. There is smooth heterogeneous plaque. There is nonstenotic plaque in the left bifurcation with a PSV of 88 cm/s and a EDV of 8 cm/s. There is smooth heterogeneous plaque. There is nonstenotic plaque in the left proximal internal carotid artery with a PSV of 90 cm/s and a EDV of 18 cm/s. There is smooth heterogeneous plaque. There is nonstenotic plaque in the left mid internal carotid artery with a PSV of 147 cm/s and a EDV of 28 cm/s. There is smooth heterogeneous plaque. The left distal internal carotid artery has a PSV of 67 cm/s and a EDV of 11 cm/s. There is nonstenotic plaque in the left eca with a PSV of 145 cm/s and a EDV of 10 cm/s. There is smooth heterogeneous plaque. The left vertebral artery has a PSV of 35 cm/s. Prior Study: No prior study available for comparison. Carotid Results Right PSV EDV Assessment Proximal CCA 62 9 Non Stenotic Plaque Mid CCA 62 9 Non Stenotic Plaque Distal CCA 81 10 Non Stenotic Plaque Bifurcation 81 12 Non Stenotic Plaque Proximal ICA 121 18 40-59% stenosis Mid ICA 71 16 Normal Distal ICA 46 14 Not Well Visualized ECA 259 8 Non Stenotic Plaque Vertebral Artery 44 11 Normal Left PSV EDV Assessment Proximal CCA 142 15 Non Stenotic Plaque Mid CCA 102 11 Non Stenotic Plaque Distal CCA 75 9 Non Stenotic Plaque Bifurcation 88 8 Non Stenotic Plaque Proximal ICA 90 18 Non Stenotic Plaque Mid ICA 147 28 40-59% stenosis Distal ICA 67 11 Normal ECA 145 10 Non Stenotic Plaque Vertebral Artery 35 Normal Ratio's Right ICA/CCA Ratio: 1.95 ICA/CCA Values: 121/62 Left ICA/CCA Ratio: 1.44 ICA/CCA Values: 147/102 Updated by Dave Foss MD on 09/06/2016 5:10:56 PM electronically signed on 09/06/2016 5:11:07 PM with status of Final
== END 2016-09-06 16:18 | disposition home or self-care (01) | DRG 69 ==
LOC: EMEROO 15:29 → 3BNU 15:29
PROVIDERS: ADMIT Internal Medicine; ATTEND Nurse Practitioner Family